=== PATIENT | male | born 1955 | race Caucasian/White ===

== ENCOUNTER 2023-11-08 16:38 | Emergency (ER) | payer BC, MEDICARE ==
[~2023-11-08] VITALS: Ht 177.8 cm; Wt 80.8 kg
[2023-11-08] MEDS: normal saline 1000ML IV soln IVB ONE ×2 (17:23→18:07)
[2023-11-08 17:35] LABS: BASOPHILS # (AUTO) 0.1 X10'3 (0-0.2); BASOPHILS % (AUTO) 1.2 % (0-1); EOSINOPHILS # (AUTO) 0.2 X10'3 (0-0.9); EOSINOPHILS % (AUTO) 3.2 % (0-6); HEMATOCRIT 47.1 % (42.0-52.0); HEMOGLOBIN 16.2 g/dl (14.0-17.9); LYMPHOCYTES # (AUTO) 1.7 X10'3 (1.1-4.8); LYMPHOCYTES % (AUTO) 23.9 % (21-51); MEAN CORPUSCULAR HEMOGLOBIN 31.1 PG (27.0-31.0); MEAN CORPUSCULAR HGB CONC 34.5 g/dL (33.0-36.5); MEAN CORPUSCULAR VOLUME 90.2 FL (78-98); MEAN PLATELET VOLUME 7.9 FL (7.4-10.4); MONOCYTES # (AUTO) 0.6 X10'3 (0-0.9); MONOCYTES % (AUTO) 7.8 % (2-12); NEUTROPHILS # (AUTO) 4.5 X10'3 (1.8-7.7); NEUTROPHILS % (AUTO) 63.9 % (42-75); PLATELET COUNT 223 X10'3 (140-440); RED BLOOD COUNT 5.22 X10'6 (4.70-6.10); RED CELL DISTRIBUTION WIDTH 13.2 % (11.5-14.5); WHITE BLOOD COUNT 7.1 X10'3 (4.5-11.0)
[2023-11-08 17:40] LABS: ALBUMIN 3.7 G/DL (3.4-5.0); ANION GAP 7 (8-16); BLOOD UREA NITROGEN 21 MG/DL (7-18); CALCIUM 9.1 MG/DL (8.5-10.1); CHLORIDE 102 MMOL/L (99-107); LIPASE 76 U/L (16-77); POTASSIUM 3.9 MMOL/L (3.5-5.1); SODIUM 136 MMOL/L (135-145); TOTAL CARBON DIOXIDE 26.6 MMOL/L (24-32); eCRCL 48 ML/MIN; eGFR 46 ML/MIN
[2023-11-08 17:48] LABS: GLUCOSE 426 MG/DL (70-104)
[2023-11-08] MEDS: insulin regular, human 10 units/0.1 ml syringe SQ ONE (18:07)
[2023-11-08 20:21] VITALS: BP 146/83; PULSE 55; RESP 16; TEMP 98.3; O2SAT 98
== END 2023-11-08 20:24 | disposition home or self-care (01) ==
LOC: ER 16:38
DX: E11.65 Type 2 diabetes mellitus with hyperglycemia (principal)
CPT/HCPCS: 36415; 80048; 82948; 83690; 85025; 96360; 96361; 96372; 99285; J1815; J7030

== ENCOUNTER 2024-07-31 07:56 | Emergency (ER) | payer BC, OTHER ==
[~2024-07-31] VITALS: Ht 177.8 cm; Wt 82.1 kg
--- NOTE | 2024-07-31 08:13 | ELECTROCARDIOGRAPH REPORT ---
[facility] Test Date: 2024-07-31 Test Time: 08:12:20 Pat Name: HENNA TIWARI Department: [facility] Patient ID: [id number] Room: Gender: M Dairy Farmer: : 1955 Requested By: MADI MCDANIELS Order Number: [id number] Reading MD: Dr. Tarun Graff Measurements Intervals [place] Rate: 59 P: 58 VA: 165 QRS: 56 QRSD: 100 T: 16 QT: 461 QTc: 457 Interpretive Statements Sinus bradycardia Electronically Signed On 08-07-2024 18:42:[address] Tarun Graff Please click the below link to view image of tracing.
[2024-07-31 08:45] LABS: BASOPHILS # (AUTO) 0.1 X10'3 (0-0.2); BASOPHILS % (AUTO) 0.8 % (0-1); EOSINOPHILS # (AUTO) 0.1 X10'3 (0-0.9); EOSINOPHILS % (AUTO) 0.9 % (0-6); HEMOGLOBIN 16.3 g/dl (14.0-17.9); LYMPHOCYTES % (AUTO) 13.6 % (21-51); MEAN CORPUSCULAR HEMOGLOBIN 30.9 PG (27.0-31.0); MEAN CORPUSCULAR HGB CONC 34.6 g/dL (33.0-36.5); MEAN CORPUSCULAR VOLUME 89.3 FL (78-98); MEAN PLATELET VOLUME 7.7 FL (7.4-10.4); MONOCYTES # (AUTO) 0.4 X10'3 (0-0.9); MONOCYTES % (AUTO) 5.2 % (2-12); NEUTROPHILS # (AUTO) 5.9 X10'3 (1.8-7.7); NEUTROPHILS % (AUTO) 79.5 % (42-75); PLATELET COUNT 165 X10'3 (140-440); RED BLOOD COUNT 5.27 X10'6 (4.70-6.10); RED CELL DISTRIBUTION WIDTH 12.8 % (11.5-14.5); WHITE BLOOD COUNT 7.4 X10'3 (4.5-11.0)
--- NOTE | 2024-07-31 08:58 | RADIOLOGY REPORT ---
CHEST RADIOGRAPH Indication: CP Technique: Single frontal view of the chest was obtained COMPARISON: None FINDINGS: Lines and Tubes: None Lungs: Clear Pleura: No effusion. No pneumothorax. Cardiomediastinal contours: Unremarkable Bones: Unremarkable IMPRESSION: No acute disease.
[2024-07-31 09:08] LABS: ALBUMIN 3.8 G/DL (3.4-5.0); ANION GAP 10 (8-16); BLOOD UREA NITROGEN 24 MG/DL (7-18); BUN/CREATININE RATIO 17.5 (10.0-20.0); CALCIUM 9.2 MG/DL (8.5-10.1); CHLORIDE 109 MMOL/L (99-107); CREATININE 1.37 MG/DL (0.60-1.10); GLUCOSE 270 MG/DL (70-104); POTASSIUM 4.2 MMOL/L (3.5-5.1); PRO BRAIN NATRIURETIC PEPTIDE 31 PG/ML (0-125); SODIUM 143 MMOL/L (135-145); TOTAL CARBON DIOXIDE 24.1 MMOL/L (24-32); eCRCL 53 ML/MIN; eGFR 52 ML/MIN
--- NOTE | 2024-07-31 09:41 | Physician Documentation ---
History of Present Illness ~ Chief Complaint: Dizziness Stated Complaint: DIABETIC COMPLICATIONS Time Seen by MD: 08:24 HPI 68 year old male woke up this morning with sudden onset dizziness that is better on laying still and worse on moving his head. He describes it as the room spinning. He denies fevers, N/V/D, headaches. He denies other focal neurologic deficits. Medication Reconciliation Allergies: Coded Allergies: No Known Allergies (Unverified , 08/02/08) Review of Systems All Other Systems at this time: Reviewed and Negative Physical Exam Vital Signs: RN Vital Signs have been reviewed: Yes, Temperature: 97.7, Source: Oral, Heart Rate: 62, Respiratory Rate: 14, BP: 149/83, Pulse Oximetry: 97, Weight: 82.100 Oxygen Flow Rate: 0 Physical Exam HEENT: PERRL, moist oral mucosa, EOMI; bilateral nystagmus on sudden movements of head Pulmonary: No respiratory distress Cardiac: RRR, no murmur, rub or gallop MSK: no deformity Skin: w/d/i, no rash Neuro: alert, nonfocal Psych: normal affect Progress Results/Orders Results/Orders Orders - MADI MCDANIELS MD Chest,Single View (07/31/24 08:41) Monitor (07/31/24 08:08) Saline Lock (07/31/24 08:08) Oxygen (07/31/24 08:08) Completed Orders - MADI MCDANIELS MD Chest,Single View (07/31/24 08:41) Cbc/Diff (07/31/24 08:08) BMP (07/31/24 08:08) PBNP (07/31/24 08:08) Electrocardiogram (07/31/24 08:08) Hs Troponin I W Calculations (07/31/24 08:08) Vital Signs 07/31/24 07/31/24 07/31/24 07/31/24 07:59 08:26 08:27 08:37 Temp 97.7 Pulse 63 62 Resp 16 16 14 B/P (MAP) 149/102 149/83 (105) Pulse Ox 98 98 97 O2 Delivery Room Air* O2 Flow Rate 0 0 0 FiO2 N/A Laboratory Tests Test 07/31/24 08:05 07/31/24 08:33 Glucometer 265 H White Blood Count 7.4 Red Blood Count 5.27 Hemoglobin 16.3 Hematocrit 47.0 Mean Corpuscular Volume 89.3 Mean Corpuscular Hemoglobin 30.9 Mean Corpuscular Hemoglobin Concent 34.6 Red Cell Distribution Width 12.8 Platelet Count 165 Mean Platelet Volume 7.7 Neutrophils (%) (Auto) 79.5 H Lymphocytes (%) (Auto) 13.6 L Monocytes (%) (Auto) 5.2 Eosinophils (%) (Auto) 0.9 Basophils (%) (Auto) 0.8 Neutrophils # (Auto) 5.9 Lymphocytes # (Auto) 1.0 L Monocytes # (Auto) 0.4 Eosinophils # (Auto) 0.1 Basophils # (Auto) 0.1 CBC Comment Sodium Level 143 Potassium Level 4.2 Chloride Level 109 H Carbon Dioxide Level 24.1 Anion Gap 10 Blood Urea Nitrogen 24 H Creatinine 1.37 H Estimated GFR/1.73 m2 52 BUN/Creatinine Ratio 17.5 Glucose Level 270 H Calcium Level 9.2 Troponin I High Sensitivity 5 Pro-B-Type Natriuretic Peptide 31 Albumin 3.8 Chemistry Comments Medical Decision Making Findings 68 year old male with sudden onset vertigo that appears consistent with peripheral causes rather than central causes given it is exacerbated by movement and there are no other focaln neurologic deficits. Workup was largely unremarkable other than for prerenal azotemia and hyperglycemia. Extensively counseled patient regarding austyn maneuver and return precautions. Differential Dx:Considerations: Include: dehydration, electrolyte imbalance, encephalopathy, Guillain-[place], labyrinthitis, Meniere's disease, vertigo central, vertigo peripheral, vestibular neuronitis (as) Departure Disposition: 01 HOME / SELF CARE / HOMELESS Impression: Primary Impression: Vertigo Additional Impression: Hyperglycemia Condition: Stable Discharge Instructions: How to Perform the Austyn Maneuver, Vertigo Referrals: NO PRIMARY CARE PROVIDER (PCP) Education Educated: Patient Educated regarding: diagnosis, treatment, prognosis, need for follow up Signature Scribe Signature: . Attestation: . MADI MCDANIELS MD Jul 31, 2024 09:41
[2024-07-31] MEDS ORDERED: MECL-302 PO (10:02)
[2024-07-31] MEDS: meclizine 12.5mg tablet PO ONE (10:10)
[2024-07-31 11:01] VITALS: BP 143/85; PULSE 66; RESP 12; TEMP 97.9; O2SAT 100
== END 2024-07-31 11:05 | disposition home or self-care (01) ==
LOC: ER 07:56
DX: R42 Dizziness and giddiness (principal); E11.65 Type 2 diabetes mellitus with hyperglycemia; R06.02 Shortness of breath
CPT/HCPCS: 36415; 71045; 80048; 82948; 83880; 84484; 85025; 93005; 99285; J8597